=== PATIENT | female | born 1935 | race Two or more races ===

== ENCOUNTER 2016-07-23 14:08 | Emergency (ER) | payer MEDICARE, OTHER ==
[~2016-07-23 14:08] MED LIST: AMARYL2 MG PO; ATENOLOL25 MG PO; CLOPIDOGREL75 M1 PO; DIOVAN160 MG PO; GLIMEPIRIDE2 M1 PO; LIPI10 PO; LIPI20 PO; MELOXICAM7.5 M1 PO; NITROSTAT0.4 MG SL; PANTOPRAZOLE SO40 M1 PO; PEPCID20 MG PO; SERTRALINE HYDR25 MG PO; TRADJENTA5 M1 PO; ZOLOFT25 MG PO
[2016-07-23 15:00] LABS: BASOPHIL % 0.2 % (0-2); PLATELET COUNT 161 x10^3mcL (130-400); RED CELL DISTRIBUTION WIDTH 13.8 % (11.5-14.5)
[2016-07-23 15:08] LABS: CARBON DIOXIDE 23.9 mmol/L (21-32); CHLORIDE SERUM 109 mmol/L (98-107); CREATININE SERUM 1.1 mg/dL (0.6-1.0); GLUCOSE SERUM 82 mg/dL (74-106); POTASSIUM SERUM 3.7 mmol/L (3.5-5.1); SODIUM SERUM 142 mmol/L (136-145)
[2016-07-23 15:17] LABS: ALBUMIN 3.5 g/dL (3.4-5.0); ALKALINE PHOSPHATASE 55 U/L (46-116); ALT/SGPT 20 U/L (14-59); AST/SGOT 19 U/L (15-37); BILIRUBIN TOTAL 0.4 mg/dL (0.20-1.00); CHOLESTEROL 152 mg/dL (<200); TOTAL PROTEIN, SERUM 7.4 g/dL (6.4-8.2)
[2016-07-23 16:30] LABS: AMPHETAMINE QUAL UR NONE DETECTED (NEG <=1000)
[2016-07-23 18:10] VITALS: BP 127/73
== END 2016-07-23 18:10 | disposition home or self-care (01) ==
LOC: ED 14:08
PROVIDERS: Emergency Medicine
DX: S09.91XA Unspecified injury of ear, initial encounter (principal); R42 Dizziness and giddiness; I10 Essential (primary) hypertension; E78.00 Pure hypercholesterolemia, unspecified; W17.89XA Other fall from one level to another, initial encounter; Y93.89 Activity, other specified; Y99.8 Other external cause status; Y92.89 Other specified places as the place of occurrence of the external cause
CPT/HCPCS: 83880; G0480; J7030; J8597; Q0092

== ENCOUNTER 2018-01-06 18:20 | Inpatient (IN) | payer OTHER, MEDICARE ==
[~2018-01-06] VITALS: Ht 142.2 cm; Wt 45.4 kg
[2018-01-06 18:38] VITALS: Ht 142.2 cm; Wt 45.4 kg
[2018-01-06 19:18] LABS: BASOPHIL % 0.4 % (0-2); PLATELET COUNT 169 x10^3mcL (130-400); RED CELL DISTRIBUTION WIDTH 14.1 % (11.5-14.5)
[2018-01-06 19:45] LABS: CALCIUM 9.2 mg/dL (8.5-10.1); CARBON DIOXIDE 24.3 mmol/L (21-32); CHLORIDE SERUM 106 mmol/L (98-107); CREATININE SERUM 1.3 mg/dL (0.6-1.0); GLUCOSE SERUM 84 mg/dL (74-106); SODIUM SERUM 137 mmol/L (136-145)
[2018-01-06 19:50] LABS: ALBUMIN 3.8 g/dL (3.4-5.0); ALKALINE PHOSPHATASE 61 U/L (46-116); ALT/SGPT 29 U/L (14-59); AST/SGOT 19 U/L (15-37); BILIRUBIN TOTAL 0.57 mg/dL (0.20-1.00); CHOLESTEROL 141 mg/dL (<200); CHOLESTEROL/HDL RATIO 2.6; HDL CHOLESTEROL 54 mg/dL (40-60); LIPASE 369 IU/L (73-393); TOTAL PROTEIN, SERUM 7.8 g/dL (6.4-8.2); TRIGLYCERIDES 116 mg/dL (<150)
[2018-01-06 19:54] LABS: T3 TOTAL 0.84 ng/mL
[2018-01-06 20:25] LABS: microscopic required? NO
[2018-01-06 20:27] LABS: FREE T4 0.96 ng/dL (0.76-1.46); T4(THYROXINE) 5.3 ug/dL (4.7-13.3)
[2018-01-06 20:39] LABS: MAGNESIUM 1.8 mg/dL (1.8-2.4); PHOSPHOROUS 2.9 mg/dL (2.5-4.9)
[2018-01-06 20:45] LABS: UA SPECIFIC GRAVITY <=1.005 (1.005-1.035); urine erythrocyte NEGATIVE (NEGATIVE)
[2018-01-06 21:15] VITALS: BP 162/77
[2018-01-06] MEDS ORDERED: NEU300 PO (21:46)
[2018-01-06] MEDS ORDERED: NITROGLYCERIN0.4 MG SL (21:46)
[2018-01-06] MEDS ORDERED: VASCEPA1 GM PO (21:47)
[2018-01-06] MEDS ORDERED: TRADJENTA5 M1 PO (21:48)
[2018-01-06] MEDS ORDERED: METFORMIN HCL750 MG PO (21:50)
[2018-01-06] MEDS ORDERED: LOSARTAN POTAS100 M1 PO (21:50)
[2018-01-06] MEDS ORDERED: D3-50001 TAB PO (21:51)
[2018-01-06] MEDS ORDERED: COSOPT OCUMETER10 ML OS (21:53)
[2018-01-06] MEDS ORDERED: ALPHAGAN P5 M1 OD (21:53)
[2018-01-07 05:45] VITALS: BP 129/53
[2018-01-07 08:04] VITALS: BP 140/39
[2018-01-07 12:30] VITALS: BP 135/63
[2018-01-07 16:03] VITALS: BP 127/56
[2018-01-07 19:56] VITALS: BP 155/59
[2018-01-08 05:23] VITALS: BP 174/79
[2018-01-08 07:57] LABS: CALCIUM 8.8 mg/dL (8.5-10.1); CARBON DIOXIDE 22.9 mmol/L (21-32); CHLORIDE SERUM 113 mmol/L (98-107); CREATININE SERUM 1.2 mg/dL (0.6-1.0); GLUCOSE SERUM 130 mg/dL (74-106); MAGNESIUM 1.8 mg/dL (1.8-2.4); PHOSPHOROUS 3.3 mg/dL (2.5-4.9); POTASSIUM SERUM 4.2 mmol/L (3.5-5.1); SODIUM SERUM 144 mmol/L (136-145)
[2018-01-08 08:23] VITALS: BP 166/76
[2018-01-08 08:30] LABS: BASOPHIL % 0.5 % (0-2); PLATELET COUNT 153 x10^3mcL (130-400); RED CELL DISTRIBUTION WIDTH 14.3 % (11.5-14.5)
[2018-01-08 11:44] VITALS: BP 166/76
[2018-01-08 16:59] VITALS: BP 132/54
[2018-01-08 22:11] VITALS: BP 126/54
[2018-01-09 04:44] VITALS: BP 130/52
[2018-01-09 06:07] LABS: CALCIUM 8.8 mg/dL (8.5-10.1); CARBON DIOXIDE 20.3 mmol/L (21-32); CHLORIDE SERUM 110 mmol/L (98-107); CREATININE SERUM 1.4 mg/dL (0.6-1.0); GLUCOSE SERUM 132 mg/dL (74-106); POTASSIUM SERUM 3.8 mmol/L (3.5-5.1); SODIUM SERUM 141 mmol/L (136-145)
[2018-01-09 06:58] LABS: BASOPHIL % 0.3 % (0-2); PLATELET COUNT 161 x10^3mcL (130-400); RED CELL DISTRIBUTION WIDTH 14.4 % (11.5-14.5)
[2018-01-09 09:01] VITALS: BP 145/62
[2018-01-09 13:38] VITALS: BP 104/54
[2018-01-09 17:46] VITALS: BP 118/49
[2018-01-09 21:02] VITALS: BP 109/50
[2018-01-10 04:57] VITALS: BP 115/73
[2018-01-10 05:04] LABS: BASOPHIL % 0.2 % (0-2); PLATELET COUNT 149 x10^3mcL (130-400); RED CELL DISTRIBUTION WIDTH 14.4 % (11.5-14.5)
[2018-01-10 06:55] LABS: CALCIUM 8.7 mg/dL (8.5-10.1); CARBON DIOXIDE 20.1 mmol/L (21-32); CHLORIDE SERUM 111 mmol/L (98-107); CREATININE SERUM 1.3 mg/dL (0.6-1.0); GLUCOSE SERUM 137 mg/dL (74-106); POTASSIUM SERUM 4.1 mmol/L (3.5-5.1); SODIUM SERUM 143 mmol/L (136-145)
[2018-01-10 08:52] VITALS: BP 126/69
[2018-01-10 11:57] VITALS: BP 126/69
[2018-01-10] MEDS ORDERED: RAN500A PO (11:57)
[2018-01-10] MEDS ORDERED: NOR5 PO (11:57)
[2018-01-10] MEDS ORDERED: ISOSORBIDE MONO30 MG PO (11:57)
[2018-01-10] MEDS ORDERED: ALT2.5 PO (11:58)
[2018-01-10 12:25] VITALS: BP 97/52
== END 2018-01-10 13:40 | disposition home or self-care (01) | DRG 198 ==
LOC: ED 18:20 → DU 20:08 → MU 01-10 11:55
PROVIDERS: Family Medicine; Specialist
DX: I24.9 Acute ischemic heart disease, unspecified (principal); N17.0 Acute kidney failure with tubular necrosis; E11.65 Type 2 diabetes mellitus with hyperglycemia; D53.9 Nutritional anemia, unspecified; E78.00 Pure hypercholesterolemia, unspecified; M19.90 Unspecified osteoarthritis, unspecified site; F32.9 Major depressive disorder, single episode, unspecified; H40.9 Unspecified glaucoma; I25.2 Old myocardial infarction; Z95.0 Presence of cardiac pacemaker; Z68.25 Body mass index [BMI] 25.0-25.9, adult; Z95.5 Presence of coronary angioplasty implant and graft; Z83.3 Family history of diabetes mellitus; Z82.49 Family history of ischemic heart disease and other diseases of the circulatory system; N18.9 Chronic kidney disease, unspecified; I13.10 Hypertensive heart and chronic kidney disease without heart failure, with stage 1 through stage 4 chronic kidney disease, or unspecified chronic kidney disease; I07.1 Rheumatic tricuspid insufficiency; I25.10 Atherosclerotic heart disease of native coronary artery without angina pectoris
CPT/HCPCS: 82962; 83880; 84439; 87804; A9500; J7030; Q0092